=== PATIENT | male | born 1950 | race Caucasian/White ===

== ENCOUNTER 2017-06-29 20:15 | Emergency (ER) | payer MEDICARE, OTHER ==
--- NOTE | 2017-06-29 20:49 | EDM.PDOC ---
ED HPI GENERAL MEDICAL PROBLEM - General Chief Complaint: General Stated Complaint: URINARY RETENTION Time Seen by Provider: 06/29/17 20:15 Source of Information: Reports: Patient History Limitations: Reports: No Limitations - History of Present Illness INITIAL COMMENTS - FREE TEXT/NARRATIVE: Was seen in the clinic today and had 1600 ml drained from straight cath no previous hx of urinary retention now he, 12 hours later, has the same issue; he is unable to void. Last BM was yesterday morning. Traveling from [place] to go fishing here; abdomen is firm. Onset: Today - Related Data Allergies Allergy/AdvReac Type Severity Reaction Status Date / Time cholestyramine Allergy Stomach Verified 06/29/17 20:47 [From [facility]] Ache lisinopril Allergy Cough Verified 06/29/17 20:47 sucrose [From [facility]] Allergy Stomach Verified 06/29/17 20:47 Ache ED ROS GENERAL - Review of Systems Review Of Systems: See Below Constitutional: Reports: No Symptoms Respiratory: Reports: No Symptoms Cardiovascular: Reports: No Symptoms GI/Abdominal: Reports: Other (abdominal bloating) : Reports: Urinary Retention Musculoskeletal: Reports: No Symptoms Skin: Reports: No Symptoms ED EXAM, GENERAL - Physical Exam Exam: See Below Exam Limited By: No Limitations General Appearance: Alert, WD/WN, No Apparent Distress Head: Atraumatic, Normocephalic Respiratory/Chest: No Respiratory Distress, Lungs Clear, Normal Breath Sounds Cardiovascular: Normal Peripheral Pulses, Regular Rate, Rhythm GI/Abdominal: Distended (Male) Exam: Circumcised, Other (clear urine) Rectal (Males) Exam: Normal Exam Extremities: Normal Range of Motion Neurological: Alert, Oriented, CN II-XII Intact, Normal Cognition, Normal Gait Psychiatric: Normal Affect, Normal Mood Skin Exam: Warm, Dry, Intact, Normal Color, No Rash Course - Orders/Labs/Meds Orders: Active Orders 24 hr Category Date Time Status Insert Fuentes Catheter [Insert Urinary Catheter] [OM.PC] Care 06/29/17 20:45 Ordered Q24H Urinary Catheter Assessment [RC] ASDIRECTED Care 06/29/17 20:43 Ordered - Re-Assessments/Exams Free Text/Narrative Re-Assessment/Exam: 06/29/17 20:51 Urinary catheter placed and he had 1200 mls out and then we clamped. Leg bag attached. Departure - Departure Time of Disposition: 21:45 Disposition: Home, Self-Care 01 Condition: Good Clinical Impression: Urinary retention - Discharge Information Forms: ED Department Discharge - Problem List & Annotations (1) Urinary retention SNOMED Code(s): 016279741 Code(s): R33.9 - RETENTION OF URINE, UNSPECIFIED Status: Acute Priority: High - Problem List Review Problem List Initiated/Reviewed/Updated: Yes - My Orders Last 24 Hours: My Active Orders 06/29/17 20:43 Urinary Catheter Assessment [RC] ASDIRECTED 06/29/17 20:45 Insert Fuentes Catheter [Insert Urinary Catheter] [OM.PC] Q24H - Assessment/Plan Last 24 Hours: My Active Orders 06/29/17 20:43 Urinary Catheter Assessment [RC] ASDIRECTED 06/29/17 20:45 Insert Fuentes Catheter [Insert Urinary Catheter] [OM.PC] Q24H Plan: Keep fuentes in until you see your primary on Sunday or first thing in the morning on Sunday (or go to the ER) Return to ER with any concerning symptoms.
[2017-06-29] MEDS ORDERED: Bisacodyl 10 MG Supp ONE (21:00)
[2017-06-29] MEDS ORDERED: Bisacodyl 10 MG Supp RECTAL ONE (21:15)
[2017-06-30 03:16] VITALS: BP 180/107
== END 2017-06-29 21:20 | disposition home or self-care (01) ==
LOC: LB.ED 20:15
DX: R33.9 Retention of urine, unspecified (principal); Z88.8 Allergy status to other drugs, medicaments and biological substances
CPT/HCPCS: 51702; 81001; 99283; A9270